=== PATIENT | female | born 1990 | race Caucasian/White ===

== ENCOUNTER 2020-02-14 15:46 | Inpatient (IN) | payer OTHER ==
[~2020-02-14] VITALS: Ht 154.9 cm; Wt 75.4 kg
[2020-02-14] MEDS ORDERED: LISI-661 PO (16:43)
[2020-02-14] MEDS ORDERED: HYDR-4031 PO (16:43)
[2020-02-14] MEDS ORDERED: MAGNESIUM HYDROXIDE SUSPENSION 30 ML UDCUP PO PRN (16:45)
[2020-02-14 17:24] VITALS: BP 110/78
[2020-02-14] MEDS: HALOPERIDOL LACTATE 5 MG/ML VIAL IM PRN (18:27)
[2020-02-14] MEDS ORDERED: LORazepam 2 MG/ML VIAL IM ONE (18:45)
[2020-02-14] MEDS ORDERED: DiphenhydrAMINE HCL 50 MG/ML VIAL IM ONE (18:45)
[2020-02-14] MEDS ORDERED: DiphenhydrAMINE HCL 50 MG/ML VIAL ONE (18:46)
[2020-02-14] MEDS ORDERED: LORazepam 2 MG/ML VIAL ONE (18:46)
[2020-02-15 05:30] VITALS: BP 105/63
[2020-02-15 07:40] VITALS: BP 117/65
[2020-02-15] MEDS: FAMOTIDINE 20 MG TABLET PO SCH (08:22)
[2020-02-15 16:20] VITALS: BP 118/63
[2020-02-15] MEDS: ACETAMINOPHEN 325 MG TABLET PO PRN (18:11)
[2020-02-15 21:12] LABS: AMPHET/METH SCREEN,URINE POSITIVE (NEGATIVE); BARBITURATE SCREEN, URINE NEGATIVE (NEGATIVE); BENZODIAZEPINES SCREEN,URINE NEGATIVE (NEGATIVE); CANNABINOID SCREEN,URINE NEGATIVE (NEGATIVE); COCAINE SCREEN,URINE NEGATIVE (NEGATIVE); METHADONE SCREEN, URINE NEGATIVE (NEGATIVE); OPIATE SCREEN,URINE NEGATIVE (NEGATIVE)
[2020-02-15 21:15] LABS: PHENCYCLIDINE SCREEN,URINE NEGATIVE (NEGATIVE)
[2020-02-16 01:15] VITALS: BP 109/59
[2020-02-16 07:50] VITALS: BP 104/60
[2020-02-16] MEDS: FAMOTIDINE 20 MG TABLET PO SCH (08:50)
[2020-02-16 15:45] VITALS: BP 117/69
[2020-02-16] MEDS: HALOPERIDOL LACTATE 5 MG/ML VIAL IM PRN (17:33)
[2020-02-17 00:27] VITALS: BP 116/72
[2020-02-17 07:20] VITALS: BP 111/62
[2020-02-17] MEDS: FAMOTIDINE 20 MG TABLET PO SCH (08:09)
[2020-02-17 17:27] LABS: BASOPHILS % (AUTO) 0.4 % (0.0-2.0); EOSINOPHILS % (AUTO) 2.5 % (1.0-6.0); HEMATOCRIT 38.1 % (36-46); LYMPHOCYTES # (AUTO) 1.5 K/uL (1.0-4.8); MEAN CORPUSCULAR HEMOGLOBIN 30.2 pg (26.0-34.0); MEAN CORPUSCULAR HGB CONC 34.1 G/dL (31.0-37.0); MEAN CORPUSCULAR VOLUME 89 fL (80-100); MONOCYTES # (AUTO) 0.5 K/uL (0.1-1.0); MONOCYTES % (AUTO) 8.6 % (2.0-9.0); NEUTROPHILS % (AUTO) 64.5 % (40.0-70.0); PLATELET COUNT (AUTO) 316 K/uL (150-450); RED CELL DISTRIBUTION WIDTH 14.1 % (11.5-14.5)
[2020-02-17 17:36] LABS: ANION GAP 3 mmol/L (8-16); CALCIUM, TOTAL 9.7 mg/dL (8.8-10.5); CARBON DIOXIDE 32 mmol/L (22-29); CHLORIDE 102 mmol/L (98-107); CREATININE 0.87 mg/dL (0.60-1.30); GLOMERULAR FILTR. RATE CALC > 60 mL/min (>60); GLUCOSE,RANDOM 121 mg/dL (70-110); POTASSIUM 4.4 mmol/L (3.5-5.1); SODIUM SERUM 137 mmol/L (136-145); UREA NITROGEN, BLOOD 15 mg/dL (7-18)
[2020-02-17 19:18] VITALS: BP 101/67
[2020-02-17] MEDS: ACETAMINOPHEN 325 MG TABLET PO PRN (20:00)
[2020-02-18 08:29] VITALS: BP 110/50
[2020-02-18] MEDS: FAMOTIDINE 20 MG TABLET PO SCH (08:59)
[2020-02-18] MEDS: ACETAMINOPHEN 325 MG TABLET PO PRN ×2 (12:28→23:34)
[2020-02-18 15:56] VITALS: BP 107/74
[2020-02-18 20:19] VITALS: BP 129/72
[2020-02-18] MEDS ORDERED: DiphenhydrAMINE HCL 25 MG CAPSULE PO PRN (20:30)
[2020-02-19 00:55] VITALS: BP 131/70
[2020-02-19 08:03] VITALS: BP 122/79
[2020-02-19] MEDS: FAMOTIDINE 20 MG TABLET PO SCH (08:36)
[2020-02-19] MEDS ORDERED: ACET-66 PO (09:38)
[2020-02-19] MEDS ORDERED: ACET-784 PO (09:39)
[2020-02-19] MEDS ORDERED: MOM30 PO (09:41)
== END 2020-02-19 11:30 | DRG 885 ==
LOC: EMS 15:49 → 6S 16:43 → 6N 02-16 18:11
PROVIDERS: ADMIT Internal Medicine; ATTEND Internal Medicine
DX: F20.9 Schizophrenia, unspecified (principal); R45.851 Suicidal ideations; F19.10 Other psychoactive substance abuse, uncomplicated; Z20.828 Contact with and (suspected) exposure to other viral communicable diseases
CPT/HCPCS: J1200; J1630; J2060